=== PATIENT | female | born 1950 | race African-American/Black ===

== ENCOUNTER 2016-09-30 11:54 | Emergency (ER) | payer MEDICARE ==
[~2016-09-30] VITALS: Ht 167.6 cm; Wt 116.0 kg
[~2016-09-30 11:54] MED LIST: AMLO2.5T PO; ASPI81TA11 PO; CALC-137 PO; CEFU1TAB43 PO; LACT PO; LEVA500T PO; LOSA50TA PO; METF850T PO; MONT5CHW2 CHEW; TRAM50TA PO; VITA5000 OR
[2016-09-30 11:56] VITALS: BP 184/77; PULSE 93; RESP 16; TEMP 97.8; O2SAT 95
--- NOTE | 2016-09-30 12:36 | RADRPT ---
EXAM DATE/TIME: 09/30/2016 12:05 [place] COMPARISON: CHEST SINGLE AP, December 19, 2015, 1:49. INDICATIONS : Short of breath, swollen lower extremities, nausea and fatique for 2 weeks MEDICAL HISTORY : None. SURGICAL HISTORY : None. ENCOUNTER: Initial ACUITY: 2 weeks PAIN SCORE: 0/10 LOCATION: Bilateral chest FINDINGS: The right lung is clear. Consolidative changes are present in the left base. Heart is enlarged. Th ere is mild interstitial edema. Cardiac event monitor is noted. CONCLUSION: Cardiomegaly with mild interstitial edema. Consolidative changes left base.. Philip Tai MD FACR on September 30, 2016 at 12:33 Board Certified Radiologist. This report was verified electronically.
[2016-09-30 12:42] LABS: AUTOMATED NEUTROPHIL # 6.5 TH/MM3 (1.8-7.7); BASOPHIL # 0.1 TH/MM3 (0-0.2); BASOPHIL % 0.8 % (0.0-2.0); EOSINOPHIL # 0.1 TH/MM3 (0-0.4); EOSINOPHIL % 1.1 % (0.0-4.0); HEMATOCRIT 39.1 % (35.0-46.0); HEMO FLAGS DIFF FINAL; LYMPH % 24.7 % (9.0-44.0); LYMPHOCYTE # 2.5 TH/MM3 (1.0-4.8); MEAN CELL VOLUME 81.4 FL (80.0-100.0); MEAN CORPUSCULAR HEMOGLOBIN 26.2 PG (27.0-34.0); MEAN CORPUSCULAR HGB CONC 32.2 % (32.0-36.0); MONO % 8.9 % (0.0-8.0); NEUT % 64.5 % (16.0-70.0); PLATELET COUNT 191 TH/MM3 (150-450); RED CELL DISTRIBUTION WIDTH 14.7 % (11.6-17.2); WHITE BLOOD COUNT 10.2 TH/MM3 (4.0-11.0)
[2016-09-30 13:05] LABS: ANION GAP 10 MEQ/L (5-15); BICARBONATE 28.7 MEQ/L (21.0-32.0); BLOOD UREA NITROGEN 7 MG/DL (7-18); CHLORIDE 100 MEQ/L (98-107); GLOMERULAR FILTRATION RATE 89 ML/MIN (>89); POTASSIUM 3.5 MEQ/L (3.5-5.1); SODIUM (NA) 139 MEQ/L (136-145)
[2016-09-30 13:09] LABS: CREATINE KINASE 101 U/L (26-192)
[2016-09-30 13:21] LABS: CKMB 0.9 NG/ML (0.5-3.6)
--- NOTE | 2016-09-30 14:57 | PD ---
HPI Chief Complaint: Dizziness Time Seen by Provider: 14:57 Travel History International Travel<30 days: No Contact w/Intl Traveler<30days: No Traveled to known affect area: No History of Present Illness HPI 66-year-old female presents to the emergency department with complaint of bilateral pedal edema and feeling like she's had weight gain to her entire body 2 weeks. Reports dizziness and nausea without vomiting. Denies chest pain. Reports shortness of breath. Shortness of breath is worse with activity and better at rest. Reports coughing up white frothy sputum. Denies hemoptysis. Denies history of DVT/PE. Denies exogenous estrogen. Denies recent travel, surgery, hospitalization, trauma. Denies fever, chills. Denies abdominal pain , change in urine or stool. Currently wearing a cardiac event monitor for complaint of heart palpitations; has been wearing it since Monday. She has not addressed her current complaints with her primary care provider. Denies tobacco use. Uses CPAP at night for sleep apnea. Footwear Factory Worker is Dr. Quevedo. Primary care provider is Dr. Rikki Duran. She has history of hypertension, exercise-induced asthma, diabetes mellitus type 2. Allergies to Lyrica, statins , gabapentin, Invokana. No other modifying factors or associated signs and symptoms. PFSH Past Medical History Cancer: No Cardiovascular Problems: No High Cholesterol: Yes (LIPIDS) Diabetes: Yes Diminished Hearing: Yes Gastrointestinal Disorders: Yes (GERD) Glaucoma: No Hepatitis: No Hiatal Hernia: Yes Hypertension: Yes Musculoskeletal: Yes (BACK PROBLEMS) Respiratory: No Immunizations Current: Yes (CHILDHOOD) Thyroid Disease: No ?: Not Past Surgical History Abdominal Surgery: Yes (CHOLESYTECTOMY 2010) Gynecologic Surgery: Yes (HYSTORECTOMY ) Joint Replacement: Yes (RIGHT KNEE) Neurologic Surgery: Yes ("SPINAL FUSION YOUTH)) Oral Surgery: Yes (BENINE REMOVED IN THROAT 1978) Pacemaker: No Thoracic Surgery: Yes (LEFT LUMPECTOMY 1997) Other Surgery: Yes Social History Alcohol Use: No Tobacco Use: No Substance Use: No Allergies-Medications (Allergen,Severity, Reaction): Coded Allergies: Lyrica (Verified Allergy, Severe, AMS, 09/30/16) Gabapentin (Verified Allergy, Unknown, 09/30/16) Uncoded Allergies: INVOKANA (Allergy, Unknown, 5/14/16) Reported Meds & Prescriptions Reported Meds & Active Scripts Active Lactinex (Lactobacillus Acidophilus) 1 Tab Tab 1 Tab PO BID 30 Days Levaquin 500 Mg Tab (Levofloxacin) 500 Mg Tab 500 Mg PO DAILY 3 Days Ceftin 500 Mg Tab (Cefuroxime Axetil) 500 Mg Tab 500 Mg PO BID 3 Days Reported Tramadol Hcl (Tramadol HCl) 50 Mg Tab 50 Mg PO Q4H PRN Losartan Potassium 50 MG (Losartan Potassium) 50 Mg Tab 25 Mg PO DAILY Amlodipine Besylate 2.5 mg (Amlodipine Besylate) 2.5 Mg Tab 1 Tab PO DAILY Singulair (Montelukast Sodium) 5 Mg Chw 10 Mg CHEW DAILY Metformin (Metformin HCl) 850 Mg Tab 1,000 Mg PO BID Aspirin EC 81 mg (Aspirin) 81 Mg Tab 81 Mg PO DAILY Calcium 600 (Calcium Carbonate) Tab 1 Tab PO DAILY EVERY OTHER DAY Vitamin D-3 (Cholecalciferol) 5,000 Unit Tab 5,000 Unit OR DAILY Review of Systems Except as stated in HPI: all other systems reviewed are Neg Physical Exam Narrative GENERAL: Well-nourished, well-developed female patient, in no acute distress SKIN: Warm and dry. HEAD: Atraumatic. Normocephalic. EYES: Pupils equal and round. No scleral icterus. No injection or drainage. ENT: Mucosa pink and moist. Airway patent. NECK: Trachea midline. Carotid pulses 3+ and equal. No JVD. CARDIOVASCULAR: Regular rate and rhythm. No murmur appreciated. Bilateral feet and ankles with 1+ pitting edema. RESPIRATORY: No accessory muscle use. Clear to auscultation. Left lower lobe with decreased lung sounds to auscultation. No retractions or tachypnea. GASTROINTESTINAL: Abdomen soft, non-tender, nondistended. Hepatic and splenic margins not palpable. Bowel sounds are active 4 quadrants. MUSCULOSKELETAL: No obvious deformities. No clubbing. No cyanosis. No edema. NEUROLOGICAL: Awake and alert. Oriented 3. No obvious cranial nerve deficits. Motor grossly within normal limits. Normal speech. PSYCHIATRIC: Appropriate mood and affect; insight and judgment normal. Data Data Last Documented VS Vital Signs Date Time Temp Pulse Resp B/P Pulse Ox O2 Delivery O2 Flow Rate FiO2 09/30/16 11:56 97.8 93 16 184/77 95 Orders Electrocardiogram (09/30/16 12:01) Complete Blood Count With Diff (2/24/17 12:01) Basic Metabolic Panel (Bmp) (09/30/16 12:01) Ckmb (Isoenzyme) Profile (09/30/16 12:01) Troponin I (09/30/16 12:01) Chest, Single Ap (09/30/16 12:01) Iv Access Insert/Monitor (09/30/16 12:01) Ecg Monitoring (09/30/16 12:01) Oxygen Administration (09/30/16 12:01) Oximetry (09/30/16 12:01) CKMB (09/30/16 12:25) CKMB% (09/30/16 12:25) B-Type Natriuretic Peptide (09/30/16 14:58) Prothrombin Time / Inr (Pt) (09/30/16 15:12) Act Partial Throm Time (Ptt) (09/30/16 15:12) Furosemide Inj (Lasix Inj) (09/30/16 16:00) Labs Laboratory Tests Test 09/30/16 12:25 White Blood Count 10.2 TH/MM3 Red Blood Count 4.80 MIL/MM3 Hemoglobin 12.6 GM/DL Hematocrit 39.1 % Mean Corpuscular Volume 81.4 FL Mean Corpuscular Hemoglobin 26.2 PG Mean Corpuscular Hemoglobin 32.2 % Concent Red Cell Distribution Width 14.7 % Platelet Count 191 TH/MM3 Mean Platelet Volume 9.0 FL Neutrophils (%) (Auto) 64.5 % Lymphocytes (%) (Auto) 24.7 % Monocytes (%) (Auto) 8.9 % Eosinophils (%) (Auto) 1.1 % Basophils (%) (Auto) 0.8 % Neutrophils # (Auto) 6.5 TH/MM3 Lymphocytes # (Auto) 2.5 TH/MM3 Monocytes # (Auto) 0.9 TH/MM3 Eosinophils # (Auto) 0.1 TH/MM3 Basophils # (Auto) 0.1 TH/MM3 CBC Comment DIFF FINAL Differential Comment Sodium Level 139 MEQ/L Potassium Level 3.5 MEQ/L Chloride Level 100 MEQ/L Carbon Dioxide Level 28.7 MEQ/L Anion Gap 10 MEQ/L Blood Urea Nitrogen 7 MG/DL Creatinine 0.78 MG/DL Estimat Glomerular Filtration 89 ML/MIN Rate Random Glucose 150 MG/DL Calcium Level 9.5 MG/DL Total Creatine Kinase 101 U/L Creatine Kinase MB 0.9 NG/ML Troponin I LESS THAN 0.02 NG/ML MDM Medical Decision Making Medical Screen Exam Complete: Yes Emergency Medical Condition: Yes Medical Record Reviewed: Yes Differential Diagnosis CHF, pneumonia, pleural effusion, PE Narrative Course 66-year-old female with bilateral pedal edema 2 days. Patient reporting shortness of breath that is worse with activity and better at rest. Treatment initiated in triage. Care of patient will be transferred to alternate provider when medical bed is available. Sandy Rodrigues Sep 30, 2016 14:57
[2016-09-30] MEDS ORDERED: FUROSEMIDE 40 MG/4 ML VIAL IV PUSH ONE (16:00)
[2016-09-30 16:11] VITALS: BP 153/72; PULSE 76; RESP 20; O2SAT 94
[2016-09-30] MEDS ORDERED: METF500T PO (16:40)
[2016-09-30] MEDS ORDERED: ROSU5 PO (16:42)
[2016-09-30] MEDS ORDERED: TURM500C PO (16:42)
[2016-09-30 17:00] VITALS: BP 156/72; PULSE 78; RESP 20; O2SAT 95
[2016-09-30 17:15] LABS: APTT (PATIENT) 24.7 SEC (24.3-30.1); PROTHROMBIN TIME - PATIENT 10.6 SEC (9.8-11.6)
--- NOTE | 2016-09-30 17:50 | PD ---
Physical Exam Date Seen by Provider: Sep 30, 2016 Time Seen by Provider: 16:20 Narrative I, Dr. Herndon, have reviewed the advance practice practitioner's documentation and am in agreement, met with the patient face to face, made the diagnosis, and the medical decision making was done by me. *My assessment and Findings: Patient seen and evaluated initially by PA in triage, please review no for further details. Patient has history of COPD, CHF , multiple medical issues, nursing note reviewed, presenting to the ER with cough, dyspnea on exertion, feels like she has had leg swelling, weight gain over the past 2 weeks. She feels the symptoms more with exertion. GENERAL: Well-nourished, well-developed pleasant elderly -[place] female patient in no acute distress. SKIN: Warm and dry. HEAD: Normocephalic. EYES: No scleral icterus. No injection or drainage. NECK: Supple, trachea midline. CARDIOVASCULAR: Regular rate and rhythm without murmurs, gallops, or rubs. RESPIRATORY: Breath sounds equal but decreased at the bases bilaterally. No accessory muscle use. GASTROINTESTINAL: Abdomen soft, non-tender, nondistended. MUSCULOSKELETAL: No cyanosis. Bilateral trace edema the legs. BACK: Nontender without obvious deformity. No CVA tenderness. NEUROLOGICAL: Awake and alert. Cranial nerves II through XII intact. Motor and sensory grossly within normal limits. Five out of 5 muscle strength in all muscle groups. Normal speech. Laboratory Tests Test 09/30/16 12:25 Mean Corpuscular Hemoglobin 26.2 PG (27.0-34.0) Monocytes (%) (Auto) 8.9 % (0.0-8.0) Random Glucose 150 MG/DL (74-106) Troponin I LESS THAN 0.02 NG/ML (0.02-0.05) EKG shows NSR, no ST elevation or depression, and no arrhythmias. No significant T-wave inversions. Last 24 hours Impressions Chest X-Ray 09/30/16 1201 Signed Impressions: Service Date/Time: Friday, September 30, 2016 12:05 - CONCLUSION: Cardiomegaly with mild interstitial edema. Consolidative changes left base.. Philip Tai MD FACR BMP is unremarkable. Metabolic panel is unremarkable. Vital signs are stable in the ER. Her chest x-ray does show some signs of mild interstitial edema questionable for mild CHF. There is some questionable left base consolidation, questionable for underlying pneumonia. At this point, patient was given Lasix in the ER and my plan would be to have her on 1 L daily fluid restrictions for the next week. She is post to follow up with cardiology this coming week. As precaution, my plan would be to give her antibiotics. She does not have any other obvious signs of pneumonia. She should return for to the ER for any worsening in shortness of breath, dizziness, or new symptoms as needed. The plan has been discussed with her and she states understanding. Data Data Last Documented VS Vital Signs Date Time Temp Pulse Resp B/P Pulse Ox O2 Delivery O2 Flow Rate FiO2 09/30/16 17:00 78 20 156/72 95 Nasal Cannula 2 09/30/16 11:56 97.8 Orders Electrocardiogram (09/30/16 12:01) Complete Blood Count With Diff (09/30/16 12:01) Basic Metabolic Panel (Bmp) (09/30/16 12:01) Ckmb (Isoenzyme) Profile (09/30/16 12:01) Troponin I (09/30/16 12:01) Chest, Single Ap (09/30/16 12:01) Iv Access Insert/Monitor (09/30/16 12:01) Ecg Monitoring (09/30/16 12:01) Oxygen Administration (09/30/16 12:01) Oximetry (09/30/16 12:01) CKMB (09/30/16 12:25) CKMB% (09/30/16 12:25) B-Type Natriuretic Peptide (09/30/16 14:58) Prothrombin Time / Inr (Pt) (09/30/16 15:12) Act Partial Throm Time (Ptt) (09/30/16 15:12) Furosemide Inj (Lasix Inj) (09/30/16 16:00) Labs Laboratory Tests Test 09/30/16 12:25 White Blood Count 10.2 TH/MM3 Red Blood Count 4.80 MIL/MM3 Hemoglobin 12.6 GM/DL Hematocrit 39.1 % Mean Corpuscular Volume 81.4 FL Mean Corpuscular Hemoglobin 26.2 PG Mean Corpuscular Hemoglobin 32.2 % Concent Red Cell Distribution Width 14.7 % Platelet Count 191 TH/MM3 Mean Platelet Volume 9.0 FL Neutrophils (%) (Auto) 64.5 % Lymphocytes (%) (Auto) 24.7 % Monocytes (%) (Auto) 8.9 % Eosinophils (%) (Auto) 1.1 % Basophils (%) (Auto) 0.8 % Neutrophils # (Auto) 6.5 TH/MM3 Lymphocytes # (Auto) 2.5 TH/MM3 Monocytes # (Auto) 0.9 TH/MM3 Eosinophils # (Auto) 0.1 TH/MM3 Basophils # (Auto) 0.1 TH/MM3 CBC Comment DIFF FINAL Differential Comment Prothrombin Time 10.6 SEC Prothromb Time International 1.0 RATIO Ratio Activated Partial 24.7 SEC Thromboplast Time Sodium Level 139 MEQ/L Potassium Level 3.5 MEQ/L Chloride Level 100 MEQ/L Carbon Dioxide Level 28.7 MEQ/L Anion Gap 10 MEQ/L Blood Urea Nitrogen 7 MG/DL Creatinine 0.78 MG/DL Estimat Glomerular Filtration 89 ML/MIN Rate Random Glucose 150 MG/DL Calcium Level 9.5 MG/DL Total Creatine Kinase 101 U/L Creatine Kinase MB 0.9 NG/ML Troponin I LESS THAN 0.02 NG/ML B-Type Natriuretic Peptide 12 PG/ML [facility] Medical Record Reviewed: Yes Supervised Visit with NATI: No Diagnosis Primary Impression: Community acquired pneumonia Additional Instruction: 1 L fluid restriction. Continue Lasix as previously prescribed. Follow-up with transitions rn care coordinator and primary care physician this week. Take antibiotics as prescribed. Med/Other Pt SpecificInfo: Prescription(s) given Scripts Levofloxacin (Levaquin)750 Mg Bib764 Mg PO DAILY 7 Days Ref 0 Prov:Tari Herndon MD 09/30/16 Disposition: 01 DISCHARGE HOME Condition: Stable Tari Herndon MD Sep 30, 2016 17:50
[2016-09-30] MEDS ORDERED: LEVA750T PO (17:55)
[2016-09-30 18:00] VITALS: BP 127/58; PULSE 74; RESP 18; O2SAT 98
[2016-09-30] MEDS ORDERED: LEVOFLOXACIN 750 MG TAB PO ONE (18:45)
--- NOTE | 2016-09-30 21:36 | EKG ---
Date Performed: 09/30/2016 Time Performed: 12:22:01 PTAGE: 66 years EKG: Sinus rhythm LEFT AXIS DEVIATION NONSPECIFIC T-WAVE ABNORMALITY ABNORMAL ECG PREVIOUS TRACING : 12/19/2015 01.28 Compared to previous tracing, heart rate has slowed. DOCTOR: Sadiq Daugherty Interpretating Date/Time 09/30/2016 21:36:12
== END 2016-09-30 18:49 | disposition home or self-care (01) ==
LOC: NEPC 11:54
DX: J18.9 Pneumonia, unspecified organism (principal); E78.00 Pure hypercholesterolemia, unspecified; E11.9 Type 2 diabetes mellitus without complications; I10 Essential (primary) hypertension; Z79.82 Long term (current) use of aspirin; Z79.84 Long term (current) use of oral hypoglycemic drugs; R94.31 Abnormal electrocardiogram [ECG] [EKG]; I51.7 Cardiomegaly
CPT/HCPCS: 71010; 80048; 82550; 82552; 83880; 84484; 85025; 85610; 85730; 93005; 96374; 99284; J1940

== ENCOUNTER → 2017-05-16 | Outpatient (CLI) | payer MEDICARE ==
[~2017-05-16] VITALS: Ht 167.6 cm; Wt 116.1 kg
[~2017-05-16] MED LIST changes: +BENZOCAINE 20% ORAL SPR 60 ML CAN OROPHARYNG ONE; -CALC-137 PO; -CEFU1TAB43 PO; +CHLO1TAB34 PO; +CHOL1CAP13 PO; +FURO20TA PO; -LACT PO; -LEVA500T PO; +LIDOCAINE HCL 2% JELLY 5 ML SYRINGE TOPICAL ONE; +LOSA25TA PO; -LOSA50TA PO; +MELO-1 PO; +METF500T PO; -METF850T PO; -MONT5CHW2 CHEW; +ROSU5 PO; -TRAM50TA PO; -VITA5000 OR
[2017-05-16 07:25] VITALS: BP 154/67; PULSE 79; RESP 18; TEMP 98.1; O2SAT 98
== END ==
LOC: HEND 05:57
PROVIDERS: ATTEND Internal Medicine Gastroenterology
DX: K44.9 Diaphragmatic hernia without obstruction or gangrene (principal); K21.9 Gastro-esophageal reflux disease without esophagitis; K58.9 Irritable bowel syndrome, unspecified; K92.1 Melena; J45.909 Unspecified asthma, uncomplicated; I70.0 Atherosclerosis of aorta; I12.9 Hypertensive chronic kidney disease with stage 1 through stage 4 chronic kidney disease, or unspecified chronic kidney disease; N18.2 Chronic kidney disease, stage 2 (mild); E11.65 Type 2 diabetes mellitus with hyperglycemia; E11.40 Type 2 diabetes mellitus with diabetic neuropathy, unspecified; G89.29 Other chronic pain; E78.5 Hyperlipidemia, unspecified; G62.9 Polyneuropathy, unspecified; R80.0 Isolated proteinuria
CPT/HCPCS: 91010

== ENCOUNTER 2017-08-30 12:00 | Observation (INO) | payer MEDICARE ==
[~2017-08-30] VITALS: Ht 167.6 cm; Wt 115.6 kg
[~2017-08-30 12:00] MED LIST changes: -ASPI81TA11 PO; +ASPI81TA23 PO; -BENZOCAINE 20% ORAL SPR 60 ML CAN OROPHARYNG ONE; -CHOL1CAP13 PO; +CHOL500022 PO; -LIDOCAINE HCL 2% JELLY 5 ML SYRINGE TOPICAL ONE; -MELO-1 PO; +MELO15TA20 PO
[2017-09-13] MEDS ORDERED: METOPROLOL TARTRATE 25 MG TAB PO PRN (09:15)
[2017-09-13] MEDS ORDERED: ACETAMINOPHEN 1000 MG/100 ML 100 ML IV SCH (09:15)
[2017-09-13] MEDS ORDERED: CHLORHEXIDINE GLUCONATE 2 % 1 PACK (2 CLOTHS) TOPICAL PRN (09:15)
[2017-09-13] MEDS ORDERED: SODIUM CHLORID 0.9% 500 ML IV PRN (09:15)
[2017-09-13] MEDS ORDERED: INSULIN HUMAN REGULAR 1,000 UNITS/10 ML VIAL SQ PRN (09:15)
[2017-09-13] MEDS ORDERED: POVIDONE IODINE 5% (ANTISEPSIS KIT) 4 APPLICATIONS EACH NARE PRN (09:15)
[2017-09-13] MEDS ORDERED: LACTATED RINGER'S 1000 ML IV PRN (09:15)
[2017-09-13] MEDS ORDERED: CELE100C PO (10:59)
[2017-09-13] MEDS ORDERED: LACTATED RINGER'S 1000 ML INJ 2,000 ML IV ONE (12:00)
[2017-09-13] MEDS ORDERED: VECURONIUM BROMIDE 20 MG VIAL IV ONE (12:00)
[2017-09-13] MEDS ORDERED: NEOSTIGMINE 5 MG/5 ML SYRINGE IV PUSH ONE (12:00)
[2017-09-13] MEDS ORDERED: ROCURONIUM INJ 50 MG/5 ML SYRINGE IV PUSH ONE (12:00)
[2017-09-13] MEDS ORDERED: GLYCOPYRROLATE 1 MG/5 ML SYRINGE IV PUSH ONE (12:00)
[2017-09-13] MEDS ORDERED: ONDANSETRON HCL 4 MG/2 ML VIAL IV ONE (12:00)
[2017-09-13] MEDS ORDERED: STERILE WATER FOR INJECTION 20 ML VIAL IV ONE (12:00)
[2017-09-13] MEDS ORDERED: PHENYLEPH/NS 1000 MCG/10 ML SYR IV ONE (12:00)
[2017-09-13] MEDS ORDERED: PHENYLEPHRINE HCL 10 MG/ML VIAL IV ONE (12:00)
[2017-09-13] MEDS ORDERED: LIDOCAINE HCL 1% PF 5 ML SYRINGE OTHER ONE (12:00)
[2017-09-13] MEDS ORDERED: PROPOFOL 200 MG/20 ML AMP IV ONE (12:00)
[2017-09-13] MEDS ORDERED: DEXAMETHASONE SOD PHOS 4 MG/ML VIAL IV ONE (12:00)
[2017-09-13] MEDS ORDERED: BUPIVACAINE/EPINEPHRINE 0.25% 50 ML VIAL ONE (12:05)
[2017-09-13] MEDS ORDERED: fentaNYL CITRATE 250 MCG/5 ML AMP ONE ×2 (12:08)
[2017-09-13] MEDS ORDERED: VASOPRESSIN 20 UNITS/ML VIAL ONE (12:32)
[2017-09-13] MEDS ORDERED: ceFAZolin INJ 1,000 MG VIAL ONE (13:49)
[2017-09-13] MEDS: SODIUM CHLOR 0.9% 1000 ML INJ 1,000 ML IV SCH (15:55)
[2017-09-13] MEDS ORDERED: NALOXONE HCL 0.4 MG/ML AMP IV PUSH PRN (16:00)
[2017-09-13] MEDS ORDERED: MORPHINE SULFATE 30 MG/30 ML PCA IV SCH (16:00)
[2017-09-13] MEDS ORDERED: ACETAMINOPHEN 325MG/HYDROcodone 7.5MG/15ML UDC PO PRN ×2 (16:00)
[2017-09-13] MEDS ORDERED: SODIUM CHLORIDE 0.9% FLUSH 10 ML FLUSH IV FLUSH PRN (16:00)
[2017-09-13] MEDS ORDERED: ONDANSETRON HCL 4 MG/2 ML VIAL IV PUSH PRN (16:00)
[2017-09-13] MEDS ORDERED: GLUCAGON 1 MG/ML VIAL OTHER PRN (16:00)
[2017-09-13] MEDS ORDERED: MAGNESIUM HYDROXIDE SUSP 30 ML CUP PO PRN (16:00)
[2017-09-13] MEDS ORDERED: DEXTROSE 50% IN WATER 50 ML VIAL(D50) IV PUSH PRN (16:00)
[2017-09-13] MEDS ORDERED: Post-op Orders (for Pharmacy) XX ONE (16:00)
[2017-09-13] MEDS ORDERED: DO NOT ADM ANY ANTICOAGULANT DRUGS PRN (16:37)
[2017-09-13] MEDS ORDERED: SUGAMMADEX SODIUM 200 MG/2 ML VIAL IV PUSH ONE (16:44)
[2017-09-13] MEDS: INSULIN NovoLIN REGULAR SUPPLEMENTAL SCALE SQ SCH ×2 (17:00→21:00)
[2017-09-13] MEDS ORDERED: *morphine SULFATE 4 MG/ML PERIprocedure ONLY ONE ×2 (17:02→17:15)
[2017-09-13] MEDS ORDERED: *MEPERIDINE 25 MG INJ VIAL PERIprocedural Use ONLY ONE (17:20)
[2017-09-13 18:00] VITALS: BP 118/58; PULSE 85; RESP 18; TEMP 95.8; O2SAT 95
[2017-09-13 19:40] VITALS: O2SAT 97
[2017-09-13 20:00] VITALS: BP 141/62; PULSE 85; RESP 18; TEMP 96.4; O2SAT 97
[2017-09-13] MEDS: SODIUM CHLORIDE 0.9% FLUSH 10 ML FLUSH IV FLUSH SCH (21:00)
[2017-09-13] MEDS: PCA - TOTAL MG MORPHINE DELIVERED PER SHIFT SCH (21:05)
[2017-09-14] VITALS (7 sets, daily range): BP systolic 125–148; BP diastolic 58–66; PULSE 80–95; RESP 18–20; TEMP 95.8–99.5; O2SAT 91–96
[2017-09-14] MEDS: SODIUM CHLOR 0.9% 1000 ML INJ 1,000 ML IV SCH ×2 (03:57→11:15)
[2017-09-14] MEDS: PCA - TOTAL MG MORPHINE DELIVERED PER SHIFT SCH ×3 (06:00→21:18)
[2017-09-14] MEDS: INSULIN NovoLIN REGULAR SUPPLEMENTAL SCALE SQ SCH ×4 (08:00→21:00)
[2017-09-14] MEDS: SODIUM CHLORIDE 0.9% FLUSH 10 ML FLUSH IV FLUSH SCH ×2 (09:00→21:00)
[2017-09-14] MEDS ORDERED: ENOXAPARIN SODIUM 40 MG/0.4 ML SYRINGE SQ SCH (15:00)
--- NOTE | 2017-09-14 19:55 | HHI.PR ---
Subjective Subjective Notes pt without complaint no CP no SOB Objective Vitals/I&O Vital Signs Date Time Temp Pulse Resp B/P (MAP) Pulse Ox O2 Delivery O2 Flow Rate FiO2 09/14/17 16:30 94 21 09/14/17 16:00 98.2 85 20 148/66 (93) 09/13/17 19:40 Nasal Cannula 3.00 Cardiovascular: Regular Lungs: Clear Abdomen: Post-op tenderness Extremities: Perfused Wound Wound : Wound Location: Abdomen Appearance: Clean & Dry A/P Assessment and Plan s/p lap repair pertial fundoplication with hiatal hernia repair doing well mobilize d/c Shaw advance to full liquids Ace Umaña MD Sep 14, 2017 19:55
[2017-09-14] MEDS ORDERED: ATORVASTATIN 10 MG TAB PO ONE (21:00)
[2017-09-14] MEDS ORDERED: amLODIPine BESYLATE 5 MG TAB PO ONE (21:00)
[2017-09-14] MEDS ORDERED: PILL SPLITTER OTHER PRN (21:00)
[2017-09-14] MEDS ORDERED: LOSARTAN 25 MG TAB PO ONE (21:00)
[2017-09-15 00:02] VITALS: BP 149/67; PULSE 91; RESP 21; TEMP 99.4; O2SAT 94
[2017-09-15] MEDS: SODIUM CHLOR 0.9% 1000 ML INJ 1,000 ML IV SCH (04:18)
[2017-09-15 04:39] VITALS: BP 136/63; PULSE 88; RESP 20; TEMP 99.7; O2SAT 94
[2017-09-15] MEDS: PCA - TOTAL MG MORPHINE DELIVERED PER SHIFT SCH ×2 (06:45→11:58)
[2017-09-15 08:00] VITALS: BP 139/63; PULSE 86; RESP 18; TEMP 99.5; O2SAT 90
[2017-09-15] MEDS: INSULIN NovoLIN REGULAR SUPPLEMENTAL SCALE SQ SCH ×2 (08:00→11:57)
[2017-09-15 08:05] VITALS: O2SAT 94
[2017-09-15] MEDS: SODIUM CHLORIDE 0.9% FLUSH 10 ML FLUSH IV FLUSH SCH (08:22)
[2017-09-15] MEDS ORDERED: amLODIPine BESYLATE 5 MG TAB PO SCH (09:00)
[2017-09-15] MEDS ORDERED: LOSARTAN 25 MG TAB PO SCH (09:00)
[2017-09-15 12:00] VITALS: BP 147/65; PULSE 95; RESP 18; TEMP 99.1; O2SAT 90
[2017-09-15] MEDS ORDERED: ATORVASTATIN 10 MG TAB PO SCH (21:00)
--- NOTE | 2017-09-21 07:57 | MP ---
cc: PEACECAMERON DATE OF 1950 DATE OF OPERATION 09/13/2017 PREOPERATIVE DIAGNOSIS Reflux unresponsive to medical management with hiatal hernia. POSTOPERATIVE DIAGNOSIS Reflux unresponsive to medical management with hiatal hernia. PROCEDURE Robot-assisted laparoscopic reduction and repair of hiatal hernia with partial fundoplication, 270 degrees wrap. SURGEON Cameron Umaña MD MANAGER REGIONAL MD Dr. Jose Antonio Delcid's assistance was necessary for this procedure due to the complexity of the procedure. Dr. Brady assisted with manipulative and exposure during the procedure. ANESTHESIA General endotracheal anesthesia. ESTIMATED BLOOD LOSS Scant. FINDINGS Moderate-sized hiatal hernia. SPECIMENS None. COMPLICATIONS None. OPERATION The patient was brought to the operating room and placed on the operating table in supine position. Bilateral sequential inflation device placed on the lower extremities. General anesthesia was instituted. Shaw catheter was placed. Antibiotics were initiated. The abdomen was prepped and draped sterilely. A point 15 cm distal to the xiphoid in the midline anesthetized with 0.25% Marcaine with epinephrine. A skin incision was made, 5 mm OptiVu port was placed under direct vision and pneumoperitoneum created. Under direct vision a 5-mm left upper quadrant port, 8 mm robotic left upper quadrant, 8 mm robotic right upper quadrant and 5 mm right upper quadrant port was placed. Prior to placement of all ports the skin and peritoneum was anesthetized with 0.25% Marcaine with epinephrine. The 5 mm epigastric port was switched out for a 12 mm port under direct vision. Both 2-0 and 0 Silk sutures were placed into the abdominal cavity as well as Ray-Izzy gauze and a [place] drain. The Mary flex retractor was placed. The left lobe of the liver was retracted. The patient was placed in reverse Trendelenburg position. At this point the laparoscopic tower was removed from the patient's bedside. The da Davin robot was brought to the bedside and docked in place. I then broke scrub and I went to the console. Attention was focused in the upper abdomen. The hepatic gastric ligament was opened. The inferior aspect of the right crura of the diaphragm was dissected. The angle of His was taken down. The inferior aspect of the left crura of the diaphragm was dissected. [place] was then placed around the proximal stomach. The stomach and GE junction was withdrawn into the abdominal cavity. The crura of the diaphragm was dissected anteriorly, both right and left. The distal esophagus was mobilized out of the mediastinum into the abdominal cavity. The hernia sac was excised. The crura of the diaphragm was approximated with 0 Silk sutures in a [id number] manner, three interrupted stitches were placed posteriorly. The vasculature along the greater curve of the stomach was starting at a distance of a third way down on the greater curve and this was taken up towards the angle of His. The posterior ligamentous attachments sharply . The fundoplication was then created. The greater curve was brought from the patient's left to the right and an initial stitch was placed on the posterior cardia to the crura of the diaphragm. A wrap was then created in 270 degrees. First stitch was placed superiorly from the 10 o'clock position on the right crura to the stomach and esophagus. Three interrupted stitches were then placed from the stomach to the esophagus on the right. On the left a stitch was then placed in the 1 o'clock position on the left crura to the stomach and then the esophagus and three additional interrupted stitches were placed inferior to this from the stomach to the esophagus creating a 270 degree wrap. The operative field was inspected, hemostasis was present. At this point the robot was undocked. The laparoscopic tower was brought back into view. I then scrubbed back in. All needles, Dori and Ray-Izzy gauze were removed from the abdominal cavity. The Mary flex retractor was then removed. The fascia at the 12 mm port site was approximated with 0-Vicryl using fascial closure device. The CO2 was released, all additional laparoscopic ports removed, all skin incisions were closed with 4-0 Monocryl. The abdominal wall was clean and a sterile dressing was placed. The patient was awakened and taken to the recovery room. MD ALFONSO Gomez/AJAY /3:36 PM /7:38 AM
== END 2017-09-15 13:14 | disposition home or self-care (01) ==
LOC: HSDI 09-13 08:30 → INTOOBSV 09-13 08:30 → N07A 09-13 18:00 → UNDODISOB 09-15 12:52
PROVIDERS: ADMIT Surgery; ATTEND Surgery
DX: K21.9 Gastro-esophageal reflux disease without esophagitis (principal); K44.9 Diaphragmatic hernia without obstruction or gangrene; E11.22 Type 2 diabetes mellitus with diabetic chronic kidney disease; I12.9 Hypertensive chronic kidney disease with stage 1 through stage 4 chronic kidney disease, or unspecified chronic kidney disease; N18.1 Chronic kidney disease, stage 1; M19.90 Unspecified osteoarthritis, unspecified site; E11.40 Type 2 diabetes mellitus with diabetic neuropathy, unspecified; E78.5 Hyperlipidemia, unspecified; J45.909 Unspecified asthma, uncomplicated; K76.0 Fatty (change of) liver, not elsewhere classified
CPT/HCPCS: 00790; 43281; 82948; 94150; 96361; 96365; 96366; 96372; 96376; G0378; J0690; J1100; J1650; J2175; J2270; J2370; J2405; J2710; J3010; J7030; J7120; S2900

== ENCOUNTER 2018-05-14 09:23 | Inpatient (IN) ==
[2018-05-14] MEDS ORDERED: Chlorhexidine Gluconate 2% 1 Pack (2 Cloths) TOPICAL SCH (09:56)
[2018-05-14] MEDS ORDERED: Metoprolol Tartrate 25 MG Tablet PO SCH (09:56)
[2018-05-14] MEDS ORDERED: Vancomycin Inj 1,000 MG in Sodium Chlor 0.9% Inj 250 ML IV.SIG SCH (10:00)
[2018-05-14] MEDS ORDERED: Sodium Chlor 0.9% Inj 500 ML IV.SIG SCH (10:00)
[2018-05-14] MEDS ORDERED: ceFAZolin 2 GM Premix Inj 2 GM/50 ML PIGGYBACK IV.SIG SCH (10:00)
[2018-05-14] MEDS ORDERED: Chlorhexidine 4% Topical 120 APPLIC/120 ML Bottle TOPICAL SCH (10:00)
[2018-05-14] MEDS ORDERED: Sodium Chlor 0.9% Inj 73.07 ML, Ropivacaine 0.5% PF Inj 24.63 ML, Ketorolac Inj 30 MG, ... P-ARTICULR SCH ×5 (11:00)
[2018-05-14] MEDS ORDERED: fentaNYL Citrate Inj 250 MCG/5 ML Ampul ONE (11:42)
[2018-05-14] MEDS ORDERED: Bupivacaine/Dextrose 0.75% Inj 2 ML Ampul ONE (11:42)
[2018-05-14] MEDS ORDERED: Propofol Inj 500 MG/50 ML Vial ONE (11:48)
[2018-05-14] MEDS ORDERED: Bupivacaine 0.5% Inj 50 ML MDV Vial ONE (11:53)
[2018-05-14] MEDS ORDERED: Glycopyrrolate Inj 1 MG/5 ML Syringe IV.PUSH ONE (13:03)
[2018-05-14] MEDS ORDERED: Phenylephrine/NS 1000 MCG/10ML Syringe IV.PUSH ONE (13:03)
[2018-05-14] MEDS ORDERED: Neostigmine Inj 5 MG/5 ML Syringe IV.PUSH ONE (13:03)
[2018-05-14] MEDS ORDERED: CHLORPHENIRAMINE 4 MG PO PRN (15:24)
[2018-05-14] MEDS ORDERED: Glimepiride 1 MG Tablet PO SCH (15:30)
--- NOTE | 2018-05-14 15:31 | P.DCO ---
- Physical Therapy Physical Therapy: Gait training, Safety evaluation Knee: Total knee, Protocol: Left, Full weight bearing Canvas Knee Splint: When in bed with 2 pillows between thighs Right Lower Extremity Weight Bearing: Weight bearing as tolerated Left Lower Extremity Weight Bearing: Weight bearing as tolerated - Nursing RN: 3 days/week x 2 weeks Nursing: Dressing changes (clean incision with alcohol and apply dry sterile dressing daily ) Additional instructions: aspirin 81 mg bid x 4 weeks dvt prop knee high teds during the day b/l legs - Certification Need for Home Health services: I have seen patient Lucille Fine on 05/14/18. My clinical findings support the need for the requested home health care services because: Need for Home Health Services: Deconditioned with increased weakness Homebound Certification: I certify that my clinical findings support that this patient is homebound because: Homebound Certification: Post-op weakness
[2018-05-14] MEDS ORDERED: Zolpidem Tartrate 5 MG Tablet PO PRN (15:32)
[2018-05-14] MEDS ORDERED: Morphine Inj 4 MG/ML Vial IV.PUSH PRN (15:32)
[2018-05-14] MEDS ORDERED: Bisacodyl 10 MG Supp RECTAL PRN (15:32)
[2018-05-14] MEDS ORDERED: Post-op Orders (for Pharmacy) OTHER STA (15:32)
[2018-05-14] MEDS ORDERED: *morphine SULFATE 10 MG/ML PERIprocedure ONLY ONE (15:43)
--- NOTE | 2018-05-14 16:11 | XR ---
EXAM DATE: 05/14/2018 3:25 PM EDT AGE/SEX: 67 years / Female INDICATIONS: Post operative left knee replacement. CLINICAL DATA: This is the patient's initial encounter. Patient reports that signs and symptoms have been present for 1 day and indicates a pain score of 0/10. MEDICAL/SURGICAL HISTORY: None. None. COMPARISON: . FINDINGS: Left total knee arthroplasty. All 3 components are appropriately positioned. No fracture. Suprapatell ar drain in place CONCLUSION: Appropriate postoperative appearance of the left knee status post total arthroplasty. Electronically signed by: Manish Kruse MD 05/14/2018 4:09 PM EDT
--- NOTE | 2018-05-14 17:26 | MP ---
cc: Leighton Peña MD DATE OF OPERATION: 05/14/2018 PREOPERATIVE DIAGNOSES: 1. Left knee severe osteoarthritis, genu valgus deformity. 2. Morbid obesity. POSTOPERATIVE DIAGNOSES: 1. Left knee severe osteoarthritis, genu valgus deformity. 2. Morbid obesity. PROCEDURE PERFORMED: Left total knee arthroplasty - cemented Biomet-Vanguard. SURGEON: Leighton Peña MD PHYSICAL THERAPIST AIDE: Roz Shannon PA-C TOURNIQUET TIME: Was 64 minutes at 270 mmHg. COMPLICATIONS: None. DRAINS: Two. ANESTHESIA: General, adductor canal block, intraarticular block. PROCEDURE: My assistant media planner Roz Shannon PA-C was present for the entire surgical case. She was medically necessary for the entire case, because of the complexity of the case and to facilitate the performance of the procedure. The GARMENT FINISHER at the back table was not of the skill set for this case to manipulate the instruments, e.g. multiple different types of soft tissue retractors, trial implants and permanent implants. PROCEDURE IN DETAIL: The patient was brought to the operating room. The patient had satisfactory anesthesia by Dr. Tomlinson of Department of Anesthesia. He initially attempted a spinal anesthesia, but because of the patient's previous fusion was unable to obtain satisfactory spinal and then underwent general endotracheal anesthesia. The patient also had an adductor canal saphenous nerve block and an intra-articular block by myself. The left lower extremity was prepped and draped in the usual manner. The extremity was exsanguinated by elevation and tourniquet inflated to 270 mmHg. Anterior exposure knee was made. A paramedian capsulotomy was performed. The patient was found to have severe osteoarthritis and patella lateral subluxation, dislocation with multiple osteocartilaginous loose bodies about the patellofemoral compartment and off of the quadriceps tendon. The remaining portion of medial and lateral meniscus were removed. The anterior cruciate ligament was removed. Posterior cruciate ligament was preserved. Prepatellar fat pad was excised. Using the Biomet-Vanguard total knee arthroplasty system, the IM guide was used for the distal femur. A 5-degree valgus cut to accept a 72.5 mm femoral component. The proximal tibia using the extramedullary guide was used to accept a 75 mm tibial component. The patient had so much bone loss on her patella that a patellar resurfacing was unable to be performed, but osteophytes superiorly, medially and laterally were removed to help with the articulation of the patella to the patellofemoral compartment. A trial reduction made with a 10 mm insert. The patient was found to have excellent balance in both flexion and extension. The wound was irrigated. All trial components were removed and preparation for cementing was made. The wound was irrigated with copious amounts of sterile saline antibiotic solution; 100 mL of local anesthesia provided by Department of Pharmacy was utilized to anesthetize the knee. The knee was irrigated with 4000 mL of sterile saline antibiotic solution. Preparation for cementing was made. Two packages of Biomet bone cement was used. First, the tibial component was cemented, which was a 75 mm tibial component, followed by the femoral component which was a 72.5 mm left femoral component. All excess bone cement was removed. The bone cement allowed to harden for 12 minutes. The trial polyethylene plastic was removed and 12 mm x 75 mm "lipped" polyethylene plastic was inserted onto the proximal tibia with appropriate clicking mechanism. Tourniquet was deflated. All bleeders were coagulated. Wound itself was dry. Lateral retinacular release was performed. With this the patient was found to have significant improvement of the tracking of the patella. The wound was closed over 2/8-inch Hemovac drains. The capsule and extensor mechanisms were repaired with multiple interrupted #2 Ti-Cron suture, the subcutaneous layers with 0-Vicryl and 2-0 Vicryl, skin approximated with skin jen. Sterile dressing applied. The patient tolerated the procedure well. Went to recovery in stable and satisfactory condition. MD JARED Mcmahon/autumn , 03:14 PM , 03:25 PM TONY
[2018-05-14] MEDS: Senna/Docusate Sodium 8.6/50 MG Tablet PO SCH (21:50)
--- NOTE | 2018-05-15 07:02 | P.PNOP ---
Subjective Interval history: POD#1 L TKR No SOB;no chest pain Patient wants to go home tomorrow Physical Exam Vital signs: Vital Signs 05/14/18 10:27 05/14/18 11:08 05/14/18 15:30 Temperature 98.8 F 98.3 F Pulse Rate 81 88 Respiratory Rate 16 16 Blood Pressure 144/66 H 135/85 Pulse Oximetry 95 97 99 05/14/18 15:45 05/14/18 16:00 05/14/18 16:15 Temperature Pulse Rate 84 90 90 Respiratory Rate 16 16 16 Blood Pressure 136/62 140/64 138/63 Pulse Oximetry 97 97 97 05/14/18 16:30 05/14/18 17:32 05/14/18 20:00 Temperature 98.5 F 98.0 F Pulse Rate 92 H 97 H 85 Respiratory Rate 16 20 16 Blood Pressure 141/65 H 152/67 H 130/63 Pulse Oximetry 96 98 97 05/15/18 00:00 05/15/18 04:00 Temperature 98.4 F 98.6 F Pulse Rate 81 86 Respiratory Rate 16 16 Blood Pressure 113/56 L 129/59 L Pulse Oximetry 99 99 Intake & Output 05/14/18 05/14/18 05/15/18 06:59 18:59 06:59 Intake Total 1200 / 1200 800 / 800 Output Total 200 / 200 300 / 300 Balance 1000 / 1000 500 / 500 Weight 114.7 kg Intake: IV 300 / 300 200 / 200 Vancomycin Inj 1,000 MG In NS 250 / 250 Inj 250 ML @ 250 mls/hr IV.SIG NONPROFIT FINANCIAL CONTROLLER [facility] Rx#:[id number] Ancef 2 GM Premix Inj 2 gm In 50 / 50 50 ml @ 100 mls/hr IV.SIG NONPROFIT FINANCIAL CONTROLLER [facility] Rx#:[id number] Ancef Inj 1,000 MG In NS Inj 200 / 200 100 ML @ 200 mls/hr IV.SIG Q6H [facility] Rx#:[id number] Oral 600 / 600 Anesthesia Amount 900 / 900 Output: Urine 300 / 300 Estimated Blood Loss 50 / 50 Wound Drainage 150 / 150 # 1 Left Knee Hemovac 150 / 150 Other: # Voids 1 # Bowel Movements 0 Weight On Admission 114.7 kg Narrative: N/V intact Neg ghulam's;no calf tenderness Results - Labs CBC & Chem 7: 05/15/18 06:06 Laboratory Results - last 24 hr 05/14/18 05/14/18 10:18 22:39 POC Glucose 198 H Blood Type A Positive Antibody Screen Negative MTS Gel Crossmatch See Detail - Imaging Impressions Knee X-Ray 05/14/18 15:25 CONCLUSION: Appropriate postoperative appearance of the left knee status post total arthroplasty. Assessment and Plan - Assessment and Plan Ortho stable Discharge home tomorrow PT/Rehab [facility] PT/RN TEDS,Aspirin 81mg BID x 4weeks
[2018-05-15 07:04] LABS: Hematocrit 29.2 % (35.0-46.0); Hemoglobin 9.4 gm/dL (11.6-15.3)
[2018-05-15] MEDS: Glimepiride 1 MG Tablet PO SCH (08:58)
[2018-05-15] MEDS: amLODIPine 5 MG Tablet PO SCH (08:59)
[2018-05-15] MEDS: Senna/Docusate Sodium 8.6/50 MG Tablet PO SCH ×2 (08:59→21:44)
--- NOTE | 2018-05-15 14:58 | P.CONIM ---
History of Present Illness Consult date: 05/15/18 Requesting Physician: Leighton Peña Reason for Consult: Medical management Primary Care Provider: Rikki Duran Family Provider: Rikki Duran History of Present Illness: Mrs. Fine is a 67 y/o female with osteoarthritis, diabetes mellitus, hyperlipidemia, HTN, and peripheral neuropathy, She was admitted on 05/14/18 for an elective left total knee arthroplasty with Dr. Peña. The [facility] Hospitalist team was consulted to [facility] with medical management. The pt was resumed on her OHA and her blood glucose levels have been stable. She has been doing well post- operatively. She has worked with PT/OT and is planned for discharge to home with [facility] upon discharge from the facility. Pt denies any chest pain, SOB, palpitations, dizziness, nausea/vomiting, or abdominal pain. Past Medical Hx: Diabetes mellitus Peripheral neuropathy Osteoarthritis HTN Hyperlipidemia IBS GERD Brian's esophagus Asthma Allergic rhinitis Past Surgical Hx: Lap radha Hysterectomy Right TKA in 1996 Paraesophageal hiatal hernia repair with mesh in 09/2017 Family hx: Father with hx of CVA Social Hx: Hx of tobacco use, smoked 1 pack per week for 25 years, quit in 2011 Denies any alcohol use Pt is retired from working for [employer] Review of Systems Constitutional: Denies chills, Denies fever(s) Eyes: Denies blurry vision, Denies change in vision Ears, Nose, Mouth, and Throat: Denies hearing loss, Denies neck pain, Denies sore throat Cardiovascular: Denies chest pain, Denies leg swelling, Denies shortness of breath Respiratory: Denies cough, Denies shortness of breath Gastrointestinal: Denies abdominal pain, Denies belching, Denies bloating, Denies constipation, Denies loose stools, Denies nausea, Denies vomiting Genitourinary: Denies urinary incontinence, Denies urinary urgency Musculoskeletal: Reports joint pain, Denies back pain Skin/Breast: Denies rash, Denies wounds Neurologic: Denies abnormal speech, Denies tingling/numbness/burning sensations PMFSH - History History Provided By: Patient - Medical History Medical History: Medical History (Last Reviewed 05/16/18 @ 12:50 by Kari Kraus) Arthritis Back pain Diabetes Diverticulitis Full dentures GERD (gastroesophageal reflux disease) Hiatal hernia High cholesterol History of blood product transfusion History of hysterectomy History of tumor Hypertension Joint pain Neck pain Sleep apnea with use of continuous positive airway pressure (CPAP) Wears glasses - Surgical History Surgical History: Surgical History (Last Reviewed 05/16/18 @ 12:50 by Kari Kraus) History of arthroplasty of right knee History of cholecystectomy History of repair of hiatal hernia History of spinal fusion History of toe surgery - Tobacco History Second Hand Smoke Exposure: No Smoking Status: Former smoker Tobacco Type: Cigarettes - Alcohol History How Often Do You Have a Drink Containing Alcohol: Never - Substance Use History Substance History: No History of Abuse - Travel History Recent Travel in the [place] Within the Last 8 Weeks: No Recent Travel Out of the Country Within the Last 8 Weeks: No - Immunization History Tetanus Immunization: Unsure Hx Influenza Vaccine This Season: No Medications and Allergies Allergies Allergy/AdvReac Type Severity Reaction Status Date / Time lisinopril Allergy Severe Cough Verified 05/14/18 10:19 pregabalin Allergy Severe AMS Verified 09/13/17 10:24 gabapentin Allergy Unknown Confusion Verified 05/14/18 10:19 canagliflozin [From Invokana] Allergy Confusion Verified 05/14/18 10:19 Udqvnvz-Nik-Yeh Reductase Allergy Cramping Verified 05/14/18 10:19 Inhibitor of the Muscles Home Medications Medication Instructions Recorded Confirmed Type amlodipine 5 mg PO DAILY 05/07/18 05/14/18 History celecoxib 100 mg PO DAILY 05/07/18 05/14/18 History chlorpheniramine maleate [Allergy 4 mg PO Q8H PRN 05/07/18 05/14/18 History (chlorpheniramine)] cholecalciferol (vitamin D3) 5,000 unit PO DAILY 05/07/18 05/14/18 History [Vitamin D3] furosemide 20 mg PO EVERY OTHER DAY 05/07/18 05/14/18 History glimepiride 1 mg PO QAM 05/07/18 05/14/18 History lactobacillus combination no.8 3,000 mmu cells PO DAILY 05/07/18 05/14/18 History [Adult Probiotic] losartan 25 mg PO DAILY 05/07/18 05/14/18 History metformin 1,000 mg PO DAILY 05/07/18 05/14/18 History metformin 500 mg PO HS 05/07/18 05/14/18 History nystatin-triamcinolone 1 applic TOPICAL BID 05/07/18 05/14/18 History potassium chloride 10 meq PO DAILY 05/07/18 05/14/18 History rosuvastatin 5 mg PO DAILY 05/07/18 05/14/18 History turmeric root extract 500 mg PO EVERY OTHER DAY 05/07/18 05/14/18 History Active Medications: Active Medications Hydrocodone Bitart/Acetaminophen ([place] 7.5/325) 1 tab PO Q4H PRN PRN Reason: PAIN LESS THAN 5 ON SCALE Last Admin: 05/15/18 03:56 Dose: 1 tab Hydrocodone Bitart/Acetaminophen ([place] 7.5/325) 2 tab PO Q6H PRN PRN Reason: PAIN SCALE 5 TO 10 Last Admin: 05/15/18 10:24 Dose: 2 tab Al Hydroxide/Mg Hydroxide (Milk Of Marlon Johnson) 30 ml PO BID PRN PRN Reason: Mild Constipation Amlodipine Besylate (Norvasc) 5 mg PO DAILY [facility] Last Admin: 05/15/18 08:59 Dose: 5 mg Aspirin (Aspirin Chew) 81 mg PO BID [facility] Last Admin: 05/15/18 08:57 Dose: 81 mg Atorvastatin Calcium (Lipitor) 10 mg PO DAILY [facility] Last Admin: 05/15/18 08:57 Dose: 10 mg Bisacodyl (Dulcolax Supp) 10 mg RECTAL DAILY PRN PRN Reason: SEVERE CONSITIPATION Chlorhexidine Gluconate (Chlorhexidine 2% Cloth) 3 pack TOPICAL TETRYL BLENDER OPERATOR [facility] Stop: 05/17/18 09:55 Last Admin: 05/14/18 10:59 Dose: 3 pack Chlorhexidine Gluconate (Hibiclens 4% Topical) 1 applicatio TOPICAL TETRYL BLENDER OPERATOR [facility] Stop: 05/17/18 09:59 Furosemide (Lasix) 20 mg PO EVERY OTHER DAY [facility] Glimepiride (Amaryl) 1 mg PO DAILY [facility] Last Admin: 05/15/18 08:58 Dose: 1 mg Lactated Ringer's (Lr 1000 Ml Inj) 1,000 mls @ 30 mls/hr IV.SIG .Q24H [facility] Stop: 05/17/18 09:59 Last Infusion: 05/15/18 11:08 Dose: Infused Vancomycin HCl 1,000 mg/ (Sodium Chloride) 250 mls @ 250 mls/hr IV.SIG TETRYL BLENDER OPERATOR [facility] Stop: 05/17/18 10:02 Last Infusion: 05/14/18 12:54 Dose: Infused Cefazolin Sodium/Dextrose (Ancef 2 Gm Premix Inj) 2 gm in 50 mls @ 100 mls/hr IV.SIG TETRYL BLENDER [facility]PERATOR [facility] Stop: 05/18/18 09:59 Last Infusion: 05/14/18 14:08 Dose: Infused Lactulose (Lactulose Liq) 30 ml PO DAILY PRN PRN Reason: SEVERE CONSITIPATION Losartan Potassium (Cozaar) 25 mg PO DAILY [facility] Last Admin: 05/15/18 08:57 Dose: 25 mg Metformin HCl (Glucophage) 500 mg PO DAILY@1800 [facility] Last Admin: 05/14/18 18:13 Dose: 500 mg Metformin HCl (Glucophage) 1,000 mg PO DAILY [facility] Last Admin: 05/15/18 08:58 Dose: 1,000 mg Metoprolol Tartrate (Lopressor) 25 mg PO TETRYL BLENDER OPERATOR [facility] Stop: 05/17/18 09:55 Last Admin: 05/14/18 11:00 Dose: Not Given Miscellaneous Information (Misc Nursing Information) 0 each OTHER UNSCH PRN PRN Reason: SEE LABEL COMMENTS Stop: 05/15/18 15:33 Ondansetron HCl (Zofran Odt) 4 mg PO Q6H PRN PRN Reason: NAUSEA OR VOMITING Pt:Chlorpheniramine (4 Mg) 0 each PO Q8H PRN PRN Reason: CONGESTION Povidone Iodine (Betadine 5% Antisepsis Kit) 1 applicatio EACH NARE TETRYL BLENDER OPERATOR [facility] Stop: 05/17/18 09:55 Last Admin: 05/14/18 10:59 Dose: 1 applicatio Senna/Docusate Sodium (Alysa-Colace) 1 tab PO BID [facility] Last Admin: 05/15/18 08:59 Dose: 1 tab Sennosides (Senokot) 17.2 mg PO BID PRN PRN Reason: Moderate Constipation Sodium Chloride (Ns Flush) 2 ml IV.FLUSH BID [facility] Last Admin: 05/15/18 08:59 Dose: 2 ml Sodium Chloride (Ns Flush) 2 ml IV.FLUSH PRN PRN PRN Reason: FLUSH AFTER USING IV ACCESS Zolpidem Tartrate (Ambien) 5 mg PO HS PRN PRN Reason: INSOMNIA Exam Vital signs: Vital Signs 05/14/18 15:30 05/14/18 15:45 05/14/18 16:00 Temperature 98.3 F Pulse Rate 88 84 90 Respiratory Rate 16 16 16 Blood Pressure 135/85 136/62 140/64 Pulse Oximetry 99 97 97 05/14/18 16:15 05/14/18 16:30 05/14/18 17:32 Temperature 98.5 F Pulse Rate 90 92 H 97 H Respiratory Rate 16 16 20 Blood Pressure 138/63 141/65 H 152/67 H Pulse Oximetry 97 96 98 05/14/18 20:00 05/15/18 00:00 05/15/18 04:00 Temperature 98.0 F 98.4 F 98.6 F Pulse Rate 85 81 86 Respiratory Rate 16 16 16 Blood Pressure 130/63 113/56 L 129/59 L Pulse Oximetry 97 99 99 05/15/18 08:00 05/15/18 12:00 Temperature 98.7 F 98.4 F Pulse Rate 86 81 Respiratory Rate 19 18 Blood Pressure 120/55 L 118/56 L Pulse Oximetry 96 94 L Intake & Output 05/14/18 05/15/18 05/15/18 18:59 06:59 18:59 Intake Total 1200 / 1200 800 / 800 1600 / 1600 Output Total 200 / 200 300 / 300 Balance 1000 / 1000 500 / 500 1600 / 1600 Weight 114.7 kg Intake: IV 300 / 300 200 / 200 1600 / 1600 LR 1000 mL Inj 1,000 ML @ 30 1000 / 1000 mls/hr IV.SIG .Q24H [facility] Rx#: [id number] Vancomycin Inj 1,000 MG In NS 250 / 250 Inj 250 ML @ 250 mls/hr IV.SIG TETRYL BLENDER OPERATOR [facility]ERRIE Rx#:[id number] Ancef 2 GM Premix Inj 2 gm In 50 / 50 50 ml @ 100 mls/hr IV.SIG TETRYL BLENDER OPERATOR [facility]RIE Rx#:[id number] Ancef Inj 1,000 MG In NS Inj 200 / 200 100 / 100 100 ML @ 200 mls/hr IV.SIG Q6H [facility] Rx#:[id number] Oral 600 / 600 Anesthesia Amount 900 / 900 Output: Urine 300 / 300 Estimated Blood Loss 50 / 50 Wound Drainage 150 / 150 # 1 Left Knee Hemovac 150 / 150 Other: # Voids 1 # Bowel Movements 0 Weight On Admission 114.7 kg Narrative: GENERAL: NAD, AAOx3 SKIN: Warm and dry. HEENT: Atraumatic. Normocephalic. Pupils equal and round. No scleral icterus. No injection or drainage. No nasal bleeding or discharge. Mucous membranes pink and moist. NECK: Trachea midline. No JVD. CARDIO: Regular RESP: Clear to auscultation bilaterally. ABD: +BS, soft, non-tender, nondistended. Hepatic and splenic margins not palpable. EXT: Extremities without clubbing, cyanosis, or edema. Left knee bandages are c/ d/i NEURO: Awake and alert. No obvious cranial nerve deficits. Motor grossly within normal limits. Five out of 5 muscle strength in the arms and legs. Normal speech. Results - Labs CBC & Chem 7: 05/16/18 04:30 Labs: Laboratory Results - last 24 hr 05/14/18 05/15/18 05/15/18 22:39 06:06 07:58 Hgb 9.4 L Hct 29.2 L POC Glucose 198 H 125 H 05/15/18 11:47 Hgb Hct POC Glucose 123 H - Imaging Impressions Knee X-Ray 05/14/18 15:25 CONCLUSION: Appropriate postoperative appearance of the left knee status post total arthroplasty. Assessment and Plan - Assessment (1) Osteoarthritis Code(s): M19.90 - Unspecified osteoarthritis, unspecified site Status: Acute Plan: Osteoarthritis s/p Left TKA - Pt is a 67 y/o female with HTN, hyperlipidemia, diabetes, and osteoarthritis - She was admitted to [facility] on 05/14/18 for elective left TKA with Dr. Peña - Post-op pain control per Ortho - Pt plans to go home with [facility] upon discharge - PT daily - IS - Constipation precautions - DVT prophylaxis Diabetes mellitus - Home OHA were resumed at admission - Accu checks HTN - Home meds resumed - BP is stable - Monitor Hyperlipidemia - Home meds resumed (2) Status post total knee replacement, left Code(s): Z96.652 - Presence of left artificial knee joint Status: Acute (3) Diabetes mellitus Code(s): E11.9 - Type 2 diabetes mellitus without complications Status: Acute (4) HTN (hypertension) Code(s): I10 - Essential (primary) hypertension Status: Acute (5) Hyperlipidemia Code(s): E78.5 - Hyperlipidemia, unspecified Status: Acute - Attending Attestation Patient examined. Assessment and plan formulated with Ceirra Marcial PA-C. I agree with the above.
[2018-05-16 05:15] LABS: Hematocrit 27.9 % (35.0-46.0)
--- NOTE | 2018-05-16 07:53 | P.PNOP ---
Subjective Interval history: pt has post operative left knee pain no other complaints this am Physical Exam Vital signs: Vital Signs 05/15/18 08:00 05/15/18 12:00 05/15/18 16:00 Temperature 98.7 F 98.4 F 98.3 F Pulse Rate 86 81 83 Respiratory Rate 19 18 18 Blood Pressure 120/55 L 118/56 L 119/59 L Pulse Oximetry 96 94 L 95 05/15/18 20:00 05/16/18 04:00 Temperature 98.2 F 98 F Pulse Rate 80 104 H Respiratory Rate 18 18 Blood Pressure 126/61 105/50 L Pulse Oximetry 95 94 L Intake & Output 05/15/18 05/16/18 05/16/18 18:59 06:59 18:59 Intake Total 1600 / 1600 240 / 240 Balance 1600 / 1600 240 / 240 Weight 117.7 kg Intake: IV 1600 / 1600 LR 1000 mL Inj 1,000 ML @ 30 1000 / 1000 mls/hr IV.SIG .Q24H [facility]E Rx#: [id number] Ancef Inj 1,000 MG In NS Inj 100 / 100 100 ML @ 200 mls/hr IV.SIG Q6H [facility]ERRIE Rx#:[id number] Oral 240 / 240 Other: # Voids 2 Date of Last Bowel Movement 05/14/18 Narrative: left knee dressing dry and intact no calf tenderness +NVI Results - Labs CBC & Chem 7: 05/16/18 04:30 Laboratory Results - last 24 hr 05/15/18 05/15/18 05/15/18 07:58 11:47 16:31 Hgb Hct POC Glucose 125 H 123 H 107 05/16/18 04:30 Hgb 9.0 L Hct 27.9 L POC Glucose Assessment and Plan - Assessment and Plan POD # 2 s/p L TKA Ortho stable Discharge [facility] [place] rx will be e-scribed PT/Rehab [facility] PT/RN TEDS,Aspirin 81mg BID x 4weeks
[2018-05-16] MEDS ORDERED: Furosemide 20 MG Tablet PO SCH (09:00)
[2018-05-16 09:05] VITALS: RESP 16; O2SAT 96
[2018-05-16] MEDS: Senna/Docusate Sodium 8.6/50 MG Tablet PO SCH (09:47)
[2018-05-16] MEDS: amLODIPine 5 MG Tablet PO SCH (09:47)
[2018-05-16] MEDS: Glimepiride 1 MG Tablet PO SCH (09:47)
[2018-05-16 12:45] VITALS: BP 130/61; PULSE 87; TEMP 99.7
== END 2018-05-16 18:30 | disposition home health service (06) ==
LOC: HSDI 09:23 → N06 17:13
PROVIDERS: ADMIT Orthopaedic Surgery Orthopaedic Surgery of the Spine; ATTEND Orthopaedic Surgery Orthopaedic Surgery of the Spine